=== PATIENT | female | born 2005 | race Caucasian/White ===

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

== ENCOUNTER 2024-10-27 19:17 | Emergency (ER) | payer MEDICAID ==
[~2024-10-27] VITALS: Ht 170.2 cm; Wt 61.0 kg
[2024-10-27 19:21] VITALS: BP 132/91; PULSE 75; TEMP 98.5; O2SAT 100
[2024-10-27] MEDS ORDERED: FLUT9.9S BOTHNSTRLS (19:27)
[2024-10-27] MEDS ORDERED: CETI1TAB MT (19:27)
[2024-10-27] MEDS ORDERED: NAPR-679 MT (19:27)
[2024-10-27] MEDS ORDERED: TUSSL MT (19:27)
[2024-10-27 20:00] VITALS: RESP 16; O2SAT 98
[2024-10-27 21:02] LABS: CLARITY URINE CLEAR (CLEAR); COLOR URINE YELLOW (YELLOW); GLUCOSE URINE NEGATIVE (NEGATIVE); KETONES URINE NEGATIVE (NEGATIVE); LEUKOCYTE ESTERASE URINE NEGATIVE (NEGATIVE); NITRITE URINE NEGATIVE (NEGATIVE); OCCULT BLOOD URINE NEGATIVE (NEGATIVE); PH URINE 5.5 (4.5-8.0); PROTEIN URINE NEGATIVE (NEGATIVE); SPECIFIC GRAVITY URINE 1.023 (1.005-1.030); UROBILINOGEN URINE 0.2 E.U./dL (0.2-1.0)
[2024-10-27 21:26] LABS: HCG SCREEN NEGATIVE
[2024-10-30 04:08] LABS: CHLAMYDIA TRACHOMATIS NAA Negative (Negative); NEISSERIA GONORRHOEAE NAA Negative (Negative)
== END 2024-10-27 22:32 | disposition home or self-care (01) ==
LOC: ER 19:17
DX: H65.90 Unspecified nonsuppurative otitis media, unspecified ear (principal); Z90.89 Acquired absence of other organs; Z11.3 Encounter for screening for infections with a predominantly sexual mode of transmission; Z11.8 Encounter for screening for other infectious and parasitic diseases
CPT/HCPCS: 36415; 81003; 84703; 86592; 87491; 87591; 99283